=== PATIENT | male | born 1950 | race Hispanic/Latino ===

== ENCOUNTER 2022-11-12 18:32 | Emergency (ER) | payer MEDICARE ==
[~2022-11-12 18:32] MED LIST: Iopamidol 300 61% 100 ML VIAL FS ONE
[2022-11-12] MEDS ORDERED: Ondansetron PF 4 MG/2 ML Vial ONE (19:34)
[2022-11-12] MEDS ORDERED: Morphine 4 MG/ML VIAL ONE ×2 (19:34→21:21)
[2022-11-12 19:47] LABS: #Neutrophils 10.3 10x3/uL (1.5-8.4); %Basophils 0.2 % (0.0-2.0); %Eosinophils 0.3 % (0.0-6.0); %Lymphocytes 10.2 % (18.0-47.0); %Neutrophils 80.8 % (40.0-75.0); Hemoglobin 11.7 g/dL (13.5-17.5); Mean Corpuscular HGB CONC 33.3 g/dL (32.0-36.0); Mean Corpuscular Hemoglobin 30.6 pg (27.0-33.0); Mean Corpuscular Volume 91.9 fl (81.2-95.1); Mean Platelet Volume 9.5 fl (7.4-10.4); Platelet Count 194 10x3/uL (150-450); RBC Distribution Width 14.2 % (11.5-14.5); Red Blood Cell (RBC) Count 3.82 10x6/uL (4.32-5.72); White Blood Cell (WBC) Count 12.8 10x3/uL (3.5-10.5)
[2022-11-12 19:56] LABS: Bilirubin Neg (Negative); Blood, Urine 10 (Negative); Clarity Clear (Clear); Glucose, Urine (Dipstick) Normal (Negative); Ketone, Urine 5 mg/dL (Negative); Leukocyte 25 (Negative); Nitrite Negative (Negative); Protein, Urine (Dipstick) 30 mg/dl (Neg-Trace); Specific Gravity, Urine 1.025 (1.005-1.030)
[2022-11-12 19:59] LABS: ALT (SGPT) 14 U/L (8-55); AST (SGOT) 13 U/L (5-34); Albumin 3.9 g/dL (3.4-4.8); Alkaline Phosphatase 71 U/L (40-110); Anion Gap 13 mmol/L (10-20); BUN (Urea Nitrogen) 23 mg/dL (8.4-25.7); Bilirubin, Total 0.3 mg/dL (0.2-1.2); Calc. Creatinine Clearance 0 mL/min (70-130); Calcium 8.7 mg/dL (7.8-10.44); Carbon Dioxide 26 mmol/L (23-31); Chloride 105 mmol/L (98-107); Estimated GFR 66; Globulin 2.9 g/dL (2.4-3.5); Glucose 164 mg/dL (80-115); Lipase 50 U/L (8-78); Potassium 4.1 mmol/L (3.5-5.1); Protein, Total 6.8 g/dL (5.8-8.1); Sodium 140 mmol/L (136-145)
[2022-11-12 20:24] LABS: RBC/HPF 0-3 HPF (0-3); WBC/HPF 0-3 HPF (0-3)
[2022-11-12 20:25] LABS: Bacteria/HPF Rare-Few HPF (None Seen); Squamous Epithelial 0-3 HPF (0-3)
[2022-11-12] MEDS ORDERED: Esmolol 2,500 MG/250 ML 250 ML ONE (20:50)
[2022-11-12 21:55] LABS: SARS-CoV-2 NAA Rapid Test Not Detected (NotDetected)
== END 2022-11-12 22:15 | disposition short-term general hospital (02) ==
LOC: CSHERS 18:32
DX: I71.30 Abdominal aortic aneurysm, ruptured, unspecified (principal); K21.9 Gastro-esophageal reflux disease without esophagitis; Z20.822 Contact with and (suspected) exposure to COVID-19; R10.32 Left lower quadrant pain
CPT/HCPCS: 71045; 74177; 80053; 83690; 85025; 93005; 96361; 96365; 96374; 96375; 96376; 99285; U0002; 36415; 81003; 81015; J2270; J2405; Q9967